=== PATIENT | male | born 1990 ===

== ENCOUNTER 2019-02-11 00:49 | Emergency (ER) | payer OTHER ==
[2019-02-11 01:01] VITALS: BP 110/53
--- NOTE | 2019-02-11 06:05 | Emergency Department Report ---
ED General Adult HPI - General Chief complaint: Extremity Injury, Lower Stated complaint: CHEST PAIN; RT LEG PAIN Time Seen by Provider: 02/11/19 05:05 Source: patient Mode of arrival: Ambulatory Limitations: No Limitations - History of Present Illness Initial comments: This is a 28-year-old male that presents to the emergency room with headache, chest pain with palpation, and right lower extremity pain for 3 months. 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 States he was unable to follow-up with the doctor or emergency room because he have to work. He reports pain to chest is only with touch or when lifting heavy objects. He reports pain is dull achy in intensity that is occasional lasting for a few seconds to 1 minute. He denies swelling, numbness, tingling, bruising, shortness of breath, wheezing, fever, chills, or recent injury. Onset/Timin -: month(s) Location: chest, lower extremity (right) Radiation: non-radiation Severity scale (0 -10): 3 Quality: aching Consistency: intermittent Improves with: immobilization Worsens with: immobilization, movement Associated Symptoms: denies other symptoms Treatments Prior to Arrival: none - Related Data Previous Rx's Medication Instructions Recorded Last Taken Type Ibuprofen [Motrin 800 MG tab] 800 mg PO TID PRN #20 tablet 02/11/19 Unknown Rx Methocarbamol [Robaxin] 500 mg PO BID PRN #10 tablet 02/11/19 Unknown Rx Allergies Allergy/AdvReac Type Severity Reaction Status Date / Time No Known Allergies Allergy Unverified 02/11/19 01:01 ED Review of Systems ROS: Stated complaint: CHEST PAIN; RT LEG PAIN Other details as noted in HPI Constitutional: denies: chills, fever Respiratory: denies: cough, shortness of breath, wheezing Cardiovascular: chest pain. denies: palpitations Gastrointestinal: denies: abdominal pain, nausea, diarrhea Musculoskeletal: arthralgia (right thigh pain). denies: back pain, joint swelling Skin: denies: rash, lesions Neurological: denies: headache, weakness, paresthesias Psychiatric: denies: anxiety, depression ED Past Medical Hx - Past Medical History Previous Medical History?: No - Surgical History Past Surgical History?: No - Social History Smoking Status: Current Every Day Smoker Substance Use Type: None - Medications Home Medications: Home Medications Medication Instructions Recorded Confirmed Last Taken Type Ibuprofen [Motrin 800 MG tab] 800 mg PO TID PRN #20 tablet 02/11/19 Unknown Rx Methocarbamol [Robaxin] 500 mg PO BID PRN #10 tablet 02/11/19 Unknown Rx ED Physical Exam - General Limitations: No Limitations General appearance: alert, in no apparent distress - ENT ENT exam: Present: mucous membranes moist - Neck Neck exam: Present: normal inspection - Respiratory Respiratory exam: Present: normal lung sounds bilaterally, chest wall tenderness (right costochondral joint TTP, no erythema or swelling). Absent: respiratory distress, wheezes, rales, rhonchi, stridor - Cardiovascular Cardiovascular Exam: Present: regular rate, normal rhythm. Absent: systolic murmur, diastolic murmur, rubs, gallop - GI/Abdominal GI/Abdominal exam: Present: soft, normal bowel sounds - Expanded Lower Extremity Exam Right Hip exam: Present: normal inspection, full ROM Upper Leg exam: Present: normal inspection, full ROM Knee exam: Present: normal inspection, full ROM Lower Leg exam: Present: normal inspection, full ROM Ankle exam: Present: normal inspection, full ROM Foot/Toe exam: Present: normal inspection, full ROM Neuro vascular tendon exam: Present: no vascular compromise Gait: Positive: observed and normal - Back Exam Back exam: Present: normal inspection, full ROM. Absent: muscle spasm, paraspinal tenderness, vertebral tenderness, rash noted - Neurological Exam Neurological exam: Present: alert, oriented X3, normal gait - Expanded Neurological Exam Expanded Patient oriented to: Present: person, place, time Speech: Present: fluid speech Cranial nerves: EOM's Intact: Normal, Gag Reflex: Normal, Tongue Deviation: Normal, Nystagmus: Normal, Facial Sensation: Normal, Facial Palsy with Forehead Movement: Normal, Facial Palsy without Forehead Movement: Normal Cerebellar function: Heel to [place]: Normal, [place]berg: Normal Sensory exam: Lower Extremity Light Touch: Normal, Lower Extremity Pin Prick: Normal, Lower Extremity Temperature: Normal, LE 2 Point Discrimination: Normal Motor strength exam: RLE: 5, LLE: 5 DTR: knee (R): 4+, knee (L): 4+, ankle (R): 4+, ankle (L): 4+ Best Eye Response ([place]): (4) open spontaneously Best Motor Response ([place]): (6) obeys commands Best Verbal Response ([place]illip): (5) oriented [place] Total: 15 - Psychiatric Psychiatric exam: Present: normal affect, normal mood - Skin Skin exam: Present: warm, dry, intact, normal color. Absent: rash ED Course Vital Signs 02/11/19 00:55 Temperature 97.9 F Pulse Rate 63 Respiratory 18 Rate Blood Pressure 110/53 O2 Sat by Pulse 99 Oximetry ED Medical Decision Making - Medical Decision Making Patient seen by this provider. Vitals are stable. Patient is in no acute distress. Denies drug use, asthma, SOB, palpations, fever, or dyspnea. Assessment findings of tenderness along costocondral joint on right. Normal right lower extremity and musculoskeletal exam no TTP mid line or paraspinal L- spine or thoracic spine. Works in construction and lift heavy objects daily. Patient was asleep initially when I came into the room and reports headache has resolved. Given analgesics once in ER. Start ibuprofen and Robaxin for costochondritis. Discharged home stable. Critical care attestation.: If time is entered above; I have spent that time in minutes in the direct care of this critically ill patient, excluding procedure time. ED Disposition Clinical Impression: Acute costochondritis, Costochondral pain, Right thigh pain Disposition: TO HOME OR SELFCARE Is pt being admited?: No Condition: Stable Instructions: Costochondritis (ED), Arthralgia (ED) Additional Instructions: Rest Use ice or heat on affected area for 20 minutes and off for 2 hours. Take pain medication as needed for pain. Don't drive or operate heavy machinery while taking muscle relaxers because they may cause drowsiness. Follow up with Primary Care Provider in 2-3 days. Prescriptions: Ibuprofen [Motrin 800 MG tab] 800 mg PO TID PRN #20 tablet PRN Reason: Pain , Severe (7-10) Methocarbamol [Robaxin] 500 mg PO BID PRN #10 tablet PRN Reason: Muscle Spasm Referrals: [facility] [Outside] - 3-5 Days [facility] [Outside] - 3-5 Days [facility] [Outside] - 3-5 Days Forms: Work/School Release Form(ED) Time of Disposition: 06:22
[2019-02-11] MEDS ORDERED: IBUPROFEN 800 MG TAB PO ONE (06:12)
== END 2019-02-11 06:45 | disposition home or self-care (01) ==
LOC: ED 00:49
DX: M94.0 Chondrocostal junction syndrome [Tietze] (principal); M79.651 Pain in right thigh; F17.200 Nicotine dependence, unspecified, uncomplicated

== ENCOUNTER 2021-09-14 02:31 | Emergency (ER) | payer SELFPAY ==
--- NOTE | 2021-09-14 05:22 | XRay Report ---
RIGHT HAND 3 VIEW(S) INDICATION / CLINICAL INFORMATION: INJURY COMPARISON: None available. FINDINGS: Laceration along the palmar surface of the long finger is demonstrated. No radiopaque foreign bodies or osseous injuries are present. IMPRESSION: 1. Laceration palmar surface long finger. Signer Name: Malcom Byrd II, MD Signed: 09/14/2021 5:18 AM Workstation Name: [id number]
[2021-09-14 08:39] VITALS: BP 116/65
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
[2021-09-14] MEDS ORDERED: TETANUS,DIPH,PERTUSS(ACELL) VACCINE 0.5 ML SYRINGE IM ONE (08:53)
== END 2021-09-14 16:01 | disposition home or self-care (01) ==
LOC: ED 02:31
DX: S60.511A Abrasion of right hand, initial encounter (principal); X58.XXXA Exposure to other specified factors, initial encounter; Y93.89 Activity, other specified; Y92.89 Other specified places as the place of occurrence of the external cause; Y99.8 Other external cause status
CPT/HCPCS: 90471; 90715; 99283